=== PATIENT | male | born 1955 | race Caucasian/White ===

== ENCOUNTER 2022-02-12 09:11 | Outpatient (CLI) | payer SELFPAY ==
--- NOTE | 2022-02-12 09:15 | CRLHL7_ITS ---
For Patients: As a result of the Century Cures Act, medical imaging exams and procedure reports are released immediately into your electronic medical record. You may view this report before your referring provider. If you have questions, please contact your health care provider. Indication: Left-sided injury. Negative rib x-rays. Increasing left-sided pain Technique: Sonography of the left lateral abdomen with attention to the spleen and pancreas was performed Comparison: No prior transaxial studies Findings: The spleen is normal size measuring 10.4 x 3.5 x 5.4 centimeters. An accessory spleen is noted measuring 1.0 x 0.7 x 0.9 centimeters. The left kidney is unremarkable in size and appearance measuring 10.3 centimeters in length. There is a questionable fluid collection anterior to the spleen, between the spleen and the anterior abdominal wall. A CT with contrast is advised for further evaluation. Impression: Questionable fluid collection anterior to the spleen. A CT with contrast is advised for further evaluation. Dictated by Charles Hurtado MD @ 02/12/2022 10:45:41 AM (Electronically Signed)
--- OUTSIDE RECORDS SUMMARY | 2022-02-12 09:41 | XMS_ITS | Clinical Summary ---
:1955 Author Organization [facility] [place] [address] Care Team Providers Name Role Phone Pcp, No Primary Care Provider Unavailable Allergies No known active allergies Medications No known medications Active Problems Not on file Immunizations Name Administration Dates Next Due Td (Age >=7 Years) 08/01/2004 Family History Medical History Relation Name Comments Diabetes Father Good Health Mother Relation Name Status Comments Father Mother Social History Tobacco Use Types Packs/Day Years Used Date Smoking Tobacco: Former Comments: smoked many yrs ago Alcohol Use Standard Drinks/Week Comments Not Asked 0 (1 standard drink = 0.6 oz pure alcoho l) Sex Assigned at Date Recorded Not on file Obstetrics History Last Filed Vital Signs Vital Sign Reading Time Taken Comments Blood Pressure 140/82 02/27/2010 4:19 PM AUDIOLOGIST Pulse 81 02/27/2010 4:11 PM AUDIOLOGIST Temperature - - Respiratory Rate 18 04/27/2004 12:00 AM AUDIOLOGIST Oxygen Saturation - - Inhaled Oxygen Concentration - - Weight 97.4 kg (214 lb 11.2 oz) 02/27/2010 4:11 PM AUDIOLOGIST Height - - Body Mass Index - - Plan of Treatment Health Maintenance Due Date Last Done Comments COVID-19 vaccine series (#1) [birth year]/04/1956 Tdap 10/03/1967 Depression screening for age 12+ 1968 HIV for age 15-65 10/03/1971 BMI (ht and wt on same day) for age 18+ 1974 Hepatitis C screening for age 18-79 1974 Colonoscopy through age 75 2001 Zoster (shingles) series for age 50+ (1 of 2006 2) AAA screening age 55-77 10/03/2011 Tetanus booster 08/01/2014 08/01/2004 Lipids for age 45-75 02/27/2015 02/27/2010 (Declined) Pneumococcal series for age 65+ (1 - PCV) 2021 Influenza for age 65+ 11/01/2021 Results Not on filefrom Last [address] Supervisor Relationship Specialty Start Date End Date Pcp, No PCP - General 03/14/14 .
--- OUTSIDE RECORDS SUMMARY | 2022-02-12 09:41 | XMS_ITS ---
:1955 External Reference #:[id number] Author Care Team Providers Name Role Phone Toby Pride Primary Care Provider Unavailable Allergies Code Code System Name Reaction Severity Status Onset NKDA ? Medications No Medications Reported Problems Name Status Onset Date Source ? Basal Cell Carcinoma of Skin Active 06/29/2018 ? Procedures None recorded. Results Lab Results None recorded. Past Encounters None recorded. Social History None recorded. Vaccine List None recorded. Plan of Care Reminders Provider Appointments None recorded. ? ? Lab None recorded. ? ? Referral None recorded. ? ? Procedures None recorded. ? ? Surgeries None recorded. ? ? Imaging None recorded. ? ? Vitals None recorded.
[2022-02-12 12:11] LABS: Creatinine* 1.1 mg/dL (0.5-1.5); Estimated Glomerular Filt Rate 75 ml/min
--- NOTE | 2022-02-12 13:00 | CRLHL7_ITS ---
For Patients: As a result of the Cures Act, medical imaging exams and procedure reports are released immediately into your electronic medical record. You may view this report before your referring provider. If you have questions, please contact your health care provider. INDICATION: Left-side injury and pain. TECHNIQUE: CT abdomen and pelvis acquired with 98 cc Isovue 370 IV contrast. COMPARISON: None. FINDINGS: Lower chest: Unremarkable. Liver: Unremarkable. Normal in size and attenuation. No suspicious masses. Gallbladder and bile ducts: Unremarkable. No stones or inflammation. No biliary dilatation. Pancreas: Unremarkable. No mass or inflammation. Spleen: Unremarkable. Normal in size. No masses. Adrenal glands: Unremarkable. No nodules. Kidneys: Unremarkable. No suspicious masses, stones, or hydronephrosis. GI tract: Unremarkable. Normal in caliber. No sign of mass or inflammation. Normal appendix. Vasculature: Abdominal aorta is normal in caliber. Mesenteric arteries are patent. Lymph nodes: No lymphadenopathy. Peritoneum/Abdominal Wall: Unremarkable. No sign of mass or infiltration. No free air or significant free fluid. Pelvis: Small bladder diverticulum present. Small amount of nonspecific fluid is in the right inguinal canal. Bones: Old nondisplaced anterior left 9th rib fracture. No sign of acute fracture. IMPRESSION: No acute or specific finding to explain left-sided pain. No signs of acute injury. Please note that all CT scans at this facility use dose modulation, iterative reconstruction, and/or weight-based dosing when appropriate to reduce radiation dose to as low as reasonably achievable. Dictated by Jatin Tom MD @ 02/12/2022 1:34:19 PM (Electronically Signed)
== END 2022-02-12 09:12 | disposition home or self-care (01) ==
PROVIDERS: Visit Provider Family Medicine
DX: R07.81 Pleurodynia (principal); R18.8 Other ascites
CPT/HCPCS: 36415; 74177; 76705; 82565; Q9967